=== PATIENT | male | born 1950 | race Caucasian/White ===

== ENCOUNTER → 2016-06-05 | Outpatient (CLI) | payer OTHER ==
[~2016-06-05] MED LIST: GLC/500 PO; OXYC20TA50 PO; SIMV40TA2 PO; TAMS0.4C38 PO; [UNRECOGNIZED DRUG - CODE] INJ
--- NOTE | 2016-06-05 10:45 | DIAGNOSTIC IMAGING REPORT ---
LOWER ABDOMINAL WALL/INGUINAL ULTRASOUND CLINICAL HISTORY: Inguinal pain. Possible hernia. COMPARISON STUDY: CT scan dated 05/04/2015 FINDINGS: Ultrasonographic evaluation of both inguinal regions was performed. No lower abdominal or inguinal hernias were visualized. IMPRESSION: No ultrasonographic evidence of hernia. Electronically signed by: Michael Loja M.D. 06/05/2016 10:44 AM Dictated Date/Time: 06/05/2016 10:41 AM
== END | disposition home or self-care (01) ==
LOC: C.ULTR 10:06
PROVIDERS: ATTEND Surgery
DX: R93.8 Abnormal findings on diagnostic imaging of other specified body structures (principal)

== ENCOUNTER → 2017-05-01 | Outpatient (CLI) | payer OTHER ==
[~2017-05-01] MED LIST changes: +OPTIRAY 320 IV PRN
[2017-05-01 13:17] LABS: BLOOD UREA NITROGEN 19 mg/dl (7-18); BUN/CREATININE RATIO 14.8 (10-20); CALCIUM 8.8 mg/dl (8.5-10.1); CARBON DIOXIDE 26 mmol/L (21-32); CHLORIDE 103 mmol/L (98-107); CREATININE 1.26 mg/dl (0.60-1.40); GLUCOSE 85 mg/dl (70-99); POTASSIUM 4.3 mmol/L (3.5-5.1); SODIUM 135 mmol/L (136-145)
--- NOTE | 2017-05-01 13:45 | DIAGNOSTIC IMAGING REPORT ---
CT OF THE CHEST WITH IV CONTRAST CLINICAL HISTORY: R91.1 pulmonary nodule COMPARISON STUDY: 04/25/2016 TECHNIQUE: Following the IV administration of 93 mL of Optiray-320, CT of the thorax was performed from the thoracic inlet to the lung bases. Images are reviewed in the axial, sagittal, and coronal planes. IV contrast was administered without complication. A dose lowering technique was utilized adhering to the principles of ALARA. CT DOSE: 651.59 mGycm FINDINGS: Thyroid: Imaged portions of the thyroid gland are normal in appearance. Thoracic aorta: The thoracic aorta is normal in course and caliber, noting standard 3-vessel arch anatomy. No aneurysm or dissection is seen. Pulmonary vasculature: The pulmonary trunk is normal in caliber. There are no central filling defects identified to suggest pulmonary embolus. Note that this examination was not protocoled for the evaluation of pulmonary emboli. HEART: The heart is normal in size. There are coronary artery calcifications present. Lungs and pleural spaces: No pleural effusions are visualized. There is no focal pulmonary consolidation. There is a stable 7 mm right lower lobe perifissural nodule. Additional punctate pulmonary nodules also remain stable. Mediastinum: There is no mediastinal lymphadenopathy. Berta: There is no evidence of pathologic hilar adenopathy Axilla: There is no evidence of pathologic axillary lymphadenopathy Upper abdomen: There is mild hepatic steatosis. Skeletal structures: There are no lytic or blastic osseous lesions. IMPRESSION: 1. Stable 7 mm solid perifissural right lower lobe pulmonary nodule. This remains unchanged in size from April 2015. No further follow-up is indicated. 2. No evidence of pathologic adenopathy 3. Hepatic steatosis Electronically signed by: Michael Loja M.D. 05/01/2017 1:43 PM Dictated Date/Time: 05/01/2017 1:37 PM
== END | disposition home or self-care (01) ==
LOC: C.CTS 12:10
PROVIDERS: ATTEND Physician Assistant
DX: R91.1 Solitary pulmonary nodule (principal); K76.0 Fatty (change of) liver, not elsewhere classified